=== PATIENT | female | born 1940 | race Caucasian/White ===

== ENCOUNTER 2022-02-21 08:37 | Observation (INO) ==
[~2022-02-21 08:37] MED LIST: Acetaminophen IV 1,000 MG/100 ML BAG IVPB ONE; Famotidine 20 MG/2 ML VIAL IVP ONE
[2022-02-21] MEDS ORDERED: CeFAZolin Syr 2,000MG/20 ML 2,000 MG/20 ML SYRINGE IVPB ONE (08:55)
[2022-02-21] MEDS ORDERED: Ringers Solution, Lactated 1,000 ML IVC SCH ×2 (09:00→16:17)
[2022-02-21] MEDS ORDERED: *HR* Midazolam HCl 2 MG/2 ML VIAL ONE (09:04)
[2022-02-21] MEDS ORDERED: *HR* FentaNYL (PF) 100 MCG/2 ML VIAL ONE (09:04)
[2022-02-21] MEDS ORDERED: *HR* Propofol 200 MG/20 ML VIAL IVP ONE ×4 (09:05→13:20)
[2022-02-21] MEDS ORDERED: Lidocaine -MPF 4% 5 ML AMPUL ONE (09:05)
[2022-02-21] MEDS ORDERED: Ropivacaine/PF 0.5% 30 ML VIAL ONE (09:12)
[2022-02-21] MEDS ORDERED: Ondansetron 4 MG/2 ML VIAL IVP PRN (09:42)
[2022-02-21] MEDS ORDERED: *HR* HYDROmorphone PF 0.5 MG/0.5 ML SYRINGE IVP PRN (09:42)
[2022-02-21] MEDS ORDERED: *HR* FentaNYL (PF) 100 MCG/2 ML VIAL IVP PRN (09:42)
[2022-02-21] MEDS ORDERED: Povidone-Iodine 45 ML, Sodium Chloride IRRigation 1,000 ML IR ONE (10:45)
[2022-02-21] MEDS ORDERED: TOTAL JOINT MIXTURE (100ML) INTRAART ONE (10:45)
[2022-02-21] MEDS ORDERED: Acetaminophen IV 1,000 MG/100 ML BAG IVPB ONE (12:20)
[2022-02-21] MEDS ORDERED: Naloxone 0.4 MG/ML INJ IVP PRN (16:17)
[2022-02-21] MEDS ORDERED: *HR* HYDROmorphone (PF) 1 MG/ML SYRINGE IVP PRN (16:17)
[2022-02-21] MEDS ORDERED: MOM Conc 10 ML UD.LIQ PO PRN (16:17)
[2022-02-21] MEDS ORDERED: *HR* Promethazine 25 MG/ML VIAL IM PRN (16:17)
[2022-02-21] MEDS ORDERED: Sennosides 8.6 MG TABLET PO PRN (16:17)
[2022-02-21] MEDS: Ascorbic Acid 500 MG TABLET PO SCH (17:26)
[2022-02-21] MEDS: CeFAZolin 2 GM/120 ML BAG IVPB SCH ×2 (17:26→23:06)
[2022-02-21] MEDS: *HR* OxyCODONE Immed Rel 5 MG TABLET PO PRN (18:55)
[2022-02-21] MEDS: Ipratropium Bromide 15 ML Spray NS SCH (21:13)
[2022-02-22] MEDS: GlipiZIDE 5 MG TABLET PO SCH (08:41)
[2022-02-22] MEDS: *HR* OxyCODONE Immed Rel 5 MG TABLET PO PRN ×2 (08:41→16:04)
[2022-02-22] MEDS: Ascorbic Acid 500 MG TABLET PO SCH ×2 (08:41→17:51)
[2022-02-22] MEDS: Multivit/Ca/Min/Fe/FA 1 TAB TABLET PO SCH (08:41)
[2022-02-22] MEDS: Ipratropium Bromide 15 ML Spray NS SCH ×2 (08:42→23:22)
[2022-02-22 08:56] LABS: Basophils % 0.1 %; Hematocrit 39.9 % (35.3-44.9); Hemoglobin 13.1 g/dL (11.5-15.4); Immature Granulocytes % 0.6 % (0-4); Lymphocytes # 2.3 K/mcL (0.6-4.6); Lymphocytes % 14.3 %; Mean Corpuscular HGB Conc 32.8 g/dL (31.6-35.5); Mean Corpuscular Hemoglobin 31.9 pg (28.0-33.3); Mean Corpuscular Volume 97.1 fL (83.0-100.0); Mean Platelet Volume 9.7 fL (9.4-12.4); Monocytes # 0.9 K/mcL (0.0-1.3); Monocytes % 5.7 %; Neutrophils # 12.9 K/mcL (1.6-8.9); Platelet Count 227 K/mcL (140-400); Red Blood Count 4.11 M/mcL (3.82-4.97); Red Cell Distribution Width 11.8 % (11.5-14.5); Segmented Neutrophils % 79.3 %; White Blood Count 16.2 K/mcL (4.3-11.1)
[2022-02-22 09:17] LABS: Calcium 9.1 mg/dL (8.6-10.3); Potassium 4.5 mEq/L (3.5-5.1)
[2022-02-22] MEDS ORDERED: *HR* Dextrose 50 % in Water (Syg) 50 ML SYRINGE IVP PRN (11:06)
[2022-02-22] MEDS ORDERED: D5% in Water 1,000 ML IVC PRN (11:06)
[2022-02-22] MEDS ORDERED: Dextrose Gel 15 GM/37.5 ML TUBE PO PRN ×2 (11:06)
[2022-02-22] MEDS: Insulin LISPRO 300 UNITS/3 ML VIAL SUBQ SCH ×2 (12:33→17:51)
[2022-02-22] MEDS: Aspirin Enteric Coated 325 MG Tablet PO SCH (17:53)
[2022-02-22] MEDS: Insulin DETEMIR 100 UNIT/ML X5UNITS SUBQ SCH (20:42)
[2022-02-22] MEDS: Ondansetron 4 MG/2 ML VIAL IVP PRN (20:45)
[2022-02-23 07:33] LABS: Basophils % 0.2 %; Eosinophils # 0.1 K/mcL (0.0-0.6); Eosinophils % 1.1 %; Immature Granulocytes % 0.3 % (0-4); Lymphocytes # 3.3 K/mcL (0.6-4.6); Lymphocytes % 32.4 %; Mean Corpuscular HGB Conc 32.4 g/dL (31.6-35.5); Mean Corpuscular Hemoglobin 32.2 pg (28.0-33.3); Mean Corpuscular Volume 99.4 fL (83.0-100.0); Mean Platelet Volume 9.9 fL (9.4-12.4); Monocytes % 9.4 %; Neutrophils # 5.8 K/mcL (1.6-8.9); Platelet Count 147 K/mcL (140-400); Red Blood Count 3.42 M/mcL (3.82-4.97); Red Cell Distribution Width 12.2 % (11.5-14.5); Segmented Neutrophils % 56.6 %; White Blood Count 10.2 K/mcL (4.3-11.1)
[2022-02-23 07:52] LABS: Calcium 8.5 mg/dL (8.6-10.3)
[2022-02-23] MEDS: Insulin LISPRO 300 UNITS/3 ML VIAL SUBQ SCH ×3 (08:05→17:59)
[2022-02-23] MEDS: Ascorbic Acid 500 MG TABLET PO SCH ×2 (08:06→17:56)
[2022-02-23] MEDS: *HR* OxyCODONE Immed Rel 5 MG TABLET PO PRN ×2 (08:31→20:38)
[2022-02-23] MEDS: Multivit/Ca/Min/Fe/FA 1 TAB TABLET PO SCH (08:32)
[2022-02-23] MEDS: Aspirin Enteric Coated 325 MG Tablet PO SCH ×2 (08:32→20:38)
[2022-02-23] MEDS: Insulin DETEMIR 100 UNIT/ML X5UNITS SUBQ SCH ×2 (08:54→21:03)
[2022-02-23] MEDS: Ipratropium Bromide 15 ML Spray NS SCH ×2 (09:00→23:55)
[2022-02-23] MEDS: Ondansetron 4 MG/2 ML VIAL IVP PRN (20:38)
[2022-02-23] MEDS: HYDROcodone BIT/Homatropine 5 MG TABLET PO PRN (23:57)
[2022-02-24 04:27] LABS: Basophils % 0.2 %; Eosinophils # 0.2 K/mcL (0.0-0.6); Eosinophils % 1.8 %; Hematocrit 33.5 % (35.3-44.9); Hemoglobin 10.7 g/dL (11.5-15.4); Immature Granulocytes % 0.4 % (0-4); Lymphocytes # 2.9 K/mcL (0.6-4.6); Lymphocytes % 28.7 %; Mean Corpuscular HGB Conc 31.9 g/dL (31.6-35.5); Mean Corpuscular Hemoglobin 31.9 pg (28.0-33.3); Mean Platelet Volume 10.2 fL (9.4-12.4); Monocytes % 9.9 %; Platelet Count 158 K/mcL (140-400); Red Blood Count 3.35 M/mcL (3.82-4.97); Red Cell Distribution Width 12.1 % (11.5-14.5); White Blood Count 10.1 K/mcL (4.3-11.1)
[2022-02-24] MEDS: *HR* OxyCODONE Immed Rel 5 MG TABLET PO PRN ×2 (04:46→21:54)
[2022-02-24 04:49] LABS: BUN/Creatinine Ratio 19 (6-26); Blood Urea Nitrogen 17 mg/dL (8-23); Calcium 8.7 mg/dL (8.6-10.3); Carbon Dioxide 28 mEq/L (23-29); Chloride 103 mEq/L (98-107); Glucose 141 mg/dL (70-105); Osmolality,Calculated 290 (280-300); Potassium 4.1 mEq/L (3.5-5.1); Sodium 138 mEq/L (136-145); eGFR For African Americans > 60 (> 60); eGFR For Non-African Americans 59 (> 60)
[2022-02-24] MEDS: Multivit/Ca/Min/Fe/FA 1 TAB TABLET PO SCH (08:38)
[2022-02-24] MEDS: Ascorbic Acid 500 MG TABLET PO SCH ×2 (08:38→15:57)
[2022-02-24] MEDS: Aspirin Enteric Coated 325 MG Tablet PO SCH ×2 (08:39→21:54)
[2022-02-24] MEDS: Insulin DETEMIR 100 UNIT/ML X5UNITS SUBQ SCH ×2 (08:45→22:08)
[2022-02-24] MEDS: Insulin LISPRO 300 UNITS/3 ML VIAL SUBQ SCH ×3 (08:51→18:00)
[2022-02-24] MEDS: Ipratropium Bromide 15 ML Spray NS SCH ×2 (10:34→21:54)
[2022-02-25] MEDS: Ascorbic Acid 500 MG TABLET PO SCH ×2 (08:00→16:36)
[2022-02-25] MEDS: Multivit/Ca/Min/Fe/FA 1 TAB TABLET PO SCH (08:00)
[2022-02-25] MEDS: GlipiZIDE 5 MG TABLET PO SCH (08:00)
[2022-02-25] MEDS: Aspirin Enteric Coated 325 MG Tablet PO SCH ×2 (08:01→21:53)
[2022-02-25] MEDS: Insulin DETEMIR 100 UNIT/ML X5UNITS SUBQ SCH ×2 (08:01→21:53)
[2022-02-25] MEDS: Insulin LISPRO 300 UNITS/3 ML VIAL SUBQ SCH ×3 (08:01→18:09)
[2022-02-25] MEDS: Ipratropium Bromide 15 ML Spray NS SCH ×2 (09:10→21:54)
[2022-02-25] MEDS: *HR* OxyCODONE Immed Rel 5 MG TABLET PO PRN ×2 (13:56→21:53)
[2022-02-25] MEDS: HYDROcodone BIT/Homatropine 5 MG TABLET PO PRN (16:36)
[2022-02-26] MEDS: Aspirin Enteric Coated 325 MG Tablet PO SCH ×2 (09:00→19:45)
[2022-02-26] MEDS: GlipiZIDE 5 MG TABLET PO SCH (09:00)
[2022-02-26] MEDS: Multivit/Ca/Min/Fe/FA 1 TAB TABLET PO SCH (09:00)
[2022-02-26] MEDS: Ascorbic Acid 500 MG TABLET PO SCH ×2 (09:01→17:10)
[2022-02-26] MEDS: Insulin LISPRO 300 UNITS/3 ML VIAL SUBQ SCH ×3 (09:02→17:14)
[2022-02-26] MEDS: Insulin DETEMIR 100 UNIT/ML X5UNITS SUBQ SCH ×2 (09:02→19:53)
[2022-02-26] MEDS: *HR* OxyCODONE Immed Rel 5 MG TABLET PO PRN ×2 (11:45→17:12)
[2022-02-26] MEDS: Ipratropium Bromide 15 ML Spray NS SCH ×2 (13:28→19:54)
[2022-02-27] MEDS: *HR* OxyCODONE Immed Rel 5 MG TABLET PO PRN ×5 (00:09→21:38)
[2022-02-27] MEDS: Ascorbic Acid 500 MG TABLET PO SCH ×2 (08:50→17:40)
[2022-02-27] MEDS: Multivit/Ca/Min/Fe/FA 1 TAB TABLET PO SCH (08:50)
[2022-02-27] MEDS: GlipiZIDE 5 MG TABLET PO SCH (08:50)
[2022-02-27] MEDS: Aspirin Enteric Coated 325 MG Tablet PO SCH ×2 (08:50→20:37)
[2022-02-27] MEDS: Insulin LISPRO 300 UNITS/3 ML VIAL SUBQ SCH ×3 (08:53→17:43)
[2022-02-27] MEDS: Insulin DETEMIR 100 UNIT/ML X5UNITS SUBQ SCH ×2 (08:55→21:39)
[2022-02-27] MEDS: Ipratropium Bromide 15 ML Spray NS SCH ×2 (16:51→20:38)
[2022-02-28] MEDS: Multivit/Ca/Min/Fe/FA 1 TAB TABLET PO SCH (08:40)
[2022-02-28] MEDS: GlipiZIDE 5 MG TABLET PO SCH (08:41)
[2022-02-28] MEDS: Aspirin Enteric Coated 325 MG Tablet PO SCH ×2 (08:41→20:35)
[2022-02-28] MEDS: Ascorbic Acid 500 MG TABLET PO SCH ×2 (08:41→16:08)
[2022-02-28] MEDS: Insulin LISPRO 300 UNITS/3 ML VIAL SUBQ SCH ×3 (08:50→18:07)
[2022-02-28] MEDS: Insulin DETEMIR 100 UNIT/ML X5UNITS SUBQ SCH ×2 (10:02→20:38)
[2022-02-28] MEDS: Ipratropium Bromide 15 ML Spray NS SCH ×2 (10:03→20:36)
[2022-02-28] MEDS: HYDROcodone BIT/Homatropine 5 MG TABLET PO PRN ×2 (10:07→23:26)
[2022-02-28] MEDS: Ondansetron 4 MG/2 ML VIAL IVP PRN (10:07)
[2022-02-28] MEDS: polyethylene glycoL 3350 17 GM POWD.PACK PO SCH ×3 (11:11→20:36)
[2022-02-28] MEDS: *HR* OxyCODONE Immed Rel 5 MG TABLET PO PRN (20:35)
[2022-03-01] MEDS: Insulin LISPRO 300 UNITS/3 ML VIAL SUBQ SCH ×3 (08:09→16:52)
[2022-03-01] MEDS: Multivit/Ca/Min/Fe/FA 1 TAB TABLET PO SCH (09:21)
[2022-03-01] MEDS: Aspirin Enteric Coated 325 MG Tablet PO SCH ×2 (09:21→21:37)
[2022-03-01] MEDS: Ascorbic Acid 500 MG TABLET PO SCH ×2 (09:21→16:41)
[2022-03-01] MEDS: GlipiZIDE 5 MG TABLET PO SCH (09:22)
[2022-03-01] MEDS: polyethylene glycoL 3350 17 GM POWD.PACK PO SCH ×2 (09:23→21:39)
[2022-03-01] MEDS: Insulin DETEMIR 100 UNIT/ML X5UNITS SUBQ SCH ×2 (09:24→21:39)
[2022-03-01] MEDS: *HR* OxyCODONE Immed Rel 5 MG TABLET PO PRN ×2 (09:26→14:36)
[2022-03-01] MEDS: Ipratropium Bromide 15 ML Spray NS SCH (13:22)
[2022-03-02] MEDS: *HR* OxyCODONE Immed Rel 5 MG TABLET PO PRN ×2 (00:31→13:04)
[2022-03-02] MEDS: Ipratropium Bromide 15 ML Spray NS SCH ×2 (00:31→10:51)
[2022-03-02] MEDS ORDERED: polyethylene glycoL 3350 17 GM POWD.PACK PO SCH (09:00)
[2022-03-02] MEDS: Insulin LISPRO 300 UNITS/3 ML VIAL SUBQ SCH ×2 (10:41→14:06)
[2022-03-02] MEDS: Aspirin Enteric Coated 325 MG Tablet PO SCH (10:46)
[2022-03-02] MEDS: GlipiZIDE 5 MG TABLET PO SCH (10:47)
[2022-03-02] MEDS: Multivit/Ca/Min/Fe/FA 1 TAB TABLET PO SCH (10:47)
[2022-03-02] MEDS: Ascorbic Acid 500 MG TABLET PO SCH (10:48)
[2022-03-02] MEDS: Insulin DETEMIR 100 UNIT/ML X5UNITS SUBQ SCH (10:49)
[2022-03-02 15:46] VITALS: BP 126/69; PULSE 102; TEMP 99.3; O2SAT 96
[2022-03-02] MEDS: HYDROcodone BIT/Homatropine 5 MG TABLET PO PRN (16:54)
== END 2022-03-02 17:40 | disposition home health service (06) ==
LOC: SDCAOSI 08:37 → 4WAOSI 08:37
PROVIDERS: ADMIT Orthopaedic Surgery; ATTEND Orthopaedic Surgery